=== PATIENT | female | born 1985 | race Caucasian/White ===

== ENCOUNTER → 2024-03-19 | Outpatient (CLI) | payer MEDICAID, SELFPAY ==
[2024-03-19 17:09] LABS: Absolute Lymphocyte Count 2.58 X10^3/uL (0.83-4.51); Absolute Neutrophil Count 7.1 X10^3/uL (2.0-7.7); Basophil# 0.07 X10^3/uL; Basophil% 0.7 % (0-1); Eosinophil# 0.06 X10^3/uL; Eosinophils% 0.6 % (0-5); Hematocrit 42.4 % (37-47); Hemoglobin 13.8 g/dL (12.0-15.0); Lymphocyte # 2.58 X10^3/ul (0.83-4.51); Lymphocyte % 24.5 % (19-41); Mean Corp Hgb Conc 32.5 g/dL (32-36); Mean Corpuscular Hgb 31.2 pg (27.0-32.0); Mean Corpuscular Volume 95.9 fL (81-99); Mean Platelet Vol. 9.3 fl (6.2-12.0); Monocyte# 0.57 X10^3/uL; Monocyte% 5.4 % (0-10); NRBC Flagged by Analyzer 0 % (0-5); Neutrophil # 7.14 X10^3/uL (2.7-7.7); Neutrophil % 67.8 % (47-70); Platelet Count 303 K/mm3 (150-450); RBC Distribution Width CV 13.5 % (11.6-14.6); RBC Distribution Width SD 48.6 fl (35.1-43.9); Red Blood Count 4.42 M/mm3 (4.2-5.4); White Blood Count 10.5 K/mm3 (4.4-11.0)
[2024-03-19 17:48] LABS: AST(SGOT) 23 U/L (15-37); Alanine Aminotransfer ALT/SGPT 41 U/L (13-56); Albumin, Serum 4.2 g/dL (3.2-5.0); Alkaline Phosphatase 69 U/L (45-117); Anion Gap 10 (5-15); BUN 14 mg/dL (7-18); BUN/Creat Ratio 18.2 RATIO (10-20); Calcium,Total 9.7 mg/dL (8.5-10.1); Chloride 102 mmol/L (98-107); Cholesterol 272 mg/dL (200); Creatinine, Serum 0.77 mg/dL (0.55-1.02); EST Glomerular Filtration Rate 88 mL/min (>60); Est Glom Filt Rate - Afr Amer 107 mL/min (>60); Globulin 4.1 g/dL (2.2-4.2); Glucose 100 mg/dL (74-106); High Density Lipoprotein 58 mg/dL; Potassium 3.7 mmol/L (3.5-5.1); Protein, Total 8.3 g/dL (6.4-8.2); Sodium Level 137 mmol/L (136-145); Triglycerides 225 mg/dL; Very Low Density Lipoprotein 45 mg/dL (5-40)
== END | disposition home or self-care (01) ==
LOC: BIMLAB 16:03
PROVIDERS: PCP Internal Medicine; Referring Provider Internal Medicine; Visit Provider Internal Medicine
DX: Z00.00 Encounter for general adult medical examination without abnormal findings (principal); Z13.29 Encounter for screening for other suspected endocrine disorder
CPT/HCPCS: 36415; 80053; 80061; 84439; 84443; 85025

== ENCOUNTER 2024-06-26 13:56 | Observation (INO) | payer MEDICAID, SELFPAY ==
[2024-06-26] VITALS (15 sets, daily range): BP systolic 116–172; BP diastolic 68–115; PULSE 77–116; RESP 16–20; TEMP 36.5–37.3; O2SAT 94–100; BMI 34.2; BMI 34.5
--- NOTE | 2024-06-26 14:11 | CT_ITS ---
PROCEDURE: ABDOMEN/PELVIS W IV CONT ONLY 06/26/2024 REASON FOR EXAM: RIGHT SIDED PAIN TECHNIQUE: Abdomen and pelvis CT with intravenous contrast. Coronal and Sagittal reconstruction series were provided. PATIENT PREPARATION: Per protocol ORAL CONTRAST TYPE: None. AMOUNT: mL CONTRAST: Omnipaque 350 VOLUME: 100 mL Not Provided Gauge IV One or more dose reduction techniques were used (e.g., Automated exposure control, adjustment of the mA and/or kV according to patient size, use of iterative reconstruction technique. COMPARISON: None FINDINGS: Lung bases: Mild dependent atelectasis Liver: Hepatomegaly, craniocaudal length 19.5 cm. Mild diffuse steatosis. No focal lesion. Gallbladder: No ductal dilation. Gallbladder is unremarkable. Spleen: Normal size. Pancreas: Normal size without evidence of mass surrounding inflammation or ductal dilation. Adrenals: 8 mm left adrenal low-attenuation nodule, likely an adenoma. Right adrenal gland is unremarkable. Kidneys: No suspicious mass or abnormal enhancement. Left interpolar region subcentimeter low-attenuation lesion, too small to characterize likely benign. Nonobstructing left renal punctate calculi, without hydronephrosis. Bladder: Unremarkable. Reproductive Organs: Bilateral adnexal cysts, the larger on the left measures 3.1 x 2.9 cm. Bowel: Stomach is unremarkable. Small hiatal hernia. No bowel dilation or significant wall thickening. Appendix: Appendiceal dilation measuring up to 11 mm (series 601, image 50), with wall thickening, submucosal hyperemia and surrounding soft tissue stranding compatible with acute appendicitis. No evidence of rupture. Lymph nodes: A few prominent but nonenlarged by size criteria mesenteric periappendiceal lymph nodes are likely reactive. Vasculature: The abdominal aorta and IVC are normal. Peritoneum / Retroperitoneum: No ascites. No pneumoperitoneum. Bones: Unremarkable. Soft tissues: Small fat containing umbilical hernia. CT/Abdomen/Pelvis W IV Cont ONLY IMPRESSION: 1. Appendiceal dilation with wall thickening, hyperemia and surrounding soft ti ssue stranding compatible with acute appendicitis. 2. Hepatic steatosis without focal lesion. 3. 8 mm left adrenal low-attenuation lesion, likely an adenoma. 4. 3.1 x 2.9 cm benign left adnexal cyst. Reading [facility]
--- NOTE | 2024-06-26 14:12 | EX.ED.DYSGE1 ---
HPI History of Present Illness Chief Complaint: Abd Pain Informant: patient and parent Narrative Narrative: 39-year-old female presenting to the emergency room with abdominal pain. Patient states that she has had a sebaceous cyst on the right lower quadrant of her abdomen for a long time. She states that it has at times swollen and come to the surface and drained. She states that when it swells she gets a burning sensation. Last night around 2200 hrs. her dog jumped on her abdomen and since that time she has had a constant burning pain on the right side of her abdomen as well as discomfort in her epigastrium. She notes nausea and waves of hot and cold flashes. No fevers. No change in bowel or urinary symptoms. Mother states that she can tolerate a lot of pain but not this and she has had [address] [facility] Medical History Encounter to establish care Elevated blood pressure reading without diagnosis of hypertension Localized swelling of abdominal wall Screening for thyroid disorder Preventative health skilled nursing Medications ?Medication ?Instructions ?Recorded ?Last Taken ?Type ondansetron 4 mg disintegrating 4 mg PO Q6H PRN PRN Nausea #15 tabs 06/26/24 Unknown Rx tablet Allergy/AdvReac Type Severity Reaction Status Date / Time Penicillins Allergy Other Verified 06/26/24 13:58 Family History Sister Thyroid disorder Mother Thyroid disorder Anxiety Hypertension Heart disease Father Diabetes Arthritis Other CVA (cerebral vascular accident) Surgical History Previous section (09/08/13) History of tonsillectomy Social History adopted: No household members: family number of children: 2 current occupational status: unemployed current occupational exposures/hazards: No pets and animals: Yes history of recent travel: No Smoking Status: Former smoker second hand exposure: No alcohol intake: current details: maybe twice a month substance use type: does not use ROS ROS ED Constitutional Constitutional ED: Denies chills, fever(s) or weight loss Eyes Eyes: Denies change in vision or diplopia ENT ENT ED: Denies ear pain, rhinorrhea or sore throat Cardiovascular Cardiovascular: Denies chest pain, orthopnea, palpitations or racing heartbeat Respiratory/Chest Respiratory/Chest: Denies cough, dyspnea or orthopnea Gastrointestinal Gastrointestinal: Reports abdominal pain and nausea; Denies diarrhea or vomiting Genitourinary Genitourinary ED: Denies dysuria, hematuria or urinary frequency Musculoskeletal Musculoskeletal: Denies arthralgias or myalgias Integumentary Denies abscess or rash Neurologic Neurologic: Denies headache(s) or weakness Psychiatric Psychiatric: Denies anxiety, depression, suicidal ideation or suicidal thoughts Endocrine Endocrinology: Denies polydipsia, polyphagia or polyuria Allergic/Immunologic Allergic/Immunologic ED: Denies mouth swelling, tongue swelling or urticaria EXAM Physical Exam Const Vital Signs: 06/26/24 13:58 06/26/24 15:57 06/26/24 17:00 Temperature 97.7 F L Temperature Source Temporal Pulse Rate 115 H 77 94 Respiratory Rate 20 H 18 19 H Blood Pressure 172/115 H 158/101 H Blood Pressure Mean 134 120 Blood Pressure Source Blood Pressure Position Blood Pressure Location Pulse Ox 100 98 98 Oxygen Delivery Method Room Air Room Air Room Air 06/26/24 17:19 06/26/24 17:21 Temperature 98.2 F 98.1 F Temperature Source Oral Pulse Rate 116 H 108 H Respiratory Rate 19 H 19 H Blood Pressure 158/98 H 158/98 H Blood Pressure Mean 118 118 Blood Pressure Source Monitor Blood Pressure Position Supine Blood Pressure Location Right Arm Pulse Ox 96 97 Oxygen Delivery Method Room Air Positive well nourished and well developed General Appearance ED: well developed and NAD HEENT Reports normocephalic, head/scalp atraumatic and moist mucous membranes Eyes PERRL and EOMs intact bilaterally Neck no lymphadenopathy, supple and no JVD Resp normal respiratory effort and clear to auscultation bilaterally Cardio regular rate, regular rhythm and no murmurs GI GI Narrative: There is a cutaneous scar in the right middle quadrant where the patient states she has had a cyst drained. I do not appreciate any skin erythema. There is no involuntary guarding. The abdomen is soft. I do not appreciate a palpable mass in the soft tissue. There is normal active bowel sounds. Palpation: soft Back/Spine no CVA tenderness and normal ROM Extremity normal to inspection General Extremety ED: Negative for edema General Extremity: Negative for edema Neuro oriented x3 and CN's II-XII intact bilaterally Sensorium / Orientation: alert Motor Exam: strength 5/5 throughout Psych mental status grossly normal Mood & Affect: Negative for depressed or tearful Skin no rashes or lesions noted and no wounds MDM MDM MDM Narrative Medical decision making narrative: Differential diagnosis includes but not limited to ruptured sebaceous cyst abdominal wall contusion colitis biliary colic appendicitis UTI Patient's white count is elevated 12.8 normal BMP except for glucose of 124. test is negative LFTs within normal limits. CT of the abdomen pelvis was obtained which is concerning for acute appendicitis. I spoke with on-call surgery Dr. Hubbard who is come down to evaluate the patient. Plan of care is admission and plan for the OR. Patient will receive a dose of Cipro and Flagyl due to penicillin allergy. History & Record Review Discussion w/independent historian: Patient and Family Additional record(s) reviewed:: Prior outpatient record, Prior ED visit and Prior labs Lab Data Attestation: I reviewed the patient's lab results. Labs: Laboratory Results - last 24 hr 06/26/24 14:20 WBC 12.8 H RBC 4.39 Hgb 13.9 Hct 41.5 MCV 94.5 MCH 31.7 MCHC 33.5 RDW Std Deviation 45.3 H RDW Coeff of Hugo 13.1 Plt Count 268 MPV 9.2 Immature Gran % (Auto) 0.500 Neut % (Auto) 83.8 H Lymph % (Auto) 8.3 L [place] % (Auto) 4.8 Eos % (Auto) 2.2 Baso % (Auto) 0.4 Absolute Neuts (auto) 10.7 H Absolute Lymphs (auto) 1.06 Nucleated RBC % 0 Sodium 134 Potassium 3.7 Chloride 98 Carbon Dioxide 21.3 Anion Gap 15 BUN 12 Creatinine 0.59 L Estim Creat Clear Calc 133.09 Est GFR (MDRD) Non-Af 117 BUN/Creatinine Ratio 19.8 Glucose 124 H Calcium 9.7 Total Bilirubin 0.53 AST 25 ALT 28 Alkaline Phosphatase 69 Total Protein 7.6 Albumin 4.5 Globulin 3.1 Albumin/Globulin Ratio 1.4 Serum , Qual NEGATIVE Radiography Diagnostic Testing: Clinical Impression(s) from Imaging Studies Abdomen/Pelvis CT 06/26/24 14:11 IMPRESSION: 1. Appendiceal dilation with wall thickening, hyperemia and surrounding soft tissue stranding compatible with acute appendicitis. 2. Hepatic steatosis without focal lesion. 3. 8 mm left adrenal low-attenuation lesion, likely an adenoma. 4. 3.1 x 2.9 cm benign left adnexal cyst. Reading Location: [facility] Management Discussion w/another healthcare provider: Weaving Professor (Dr Hubbard) Discharge Plan Dx/Rx/DC Orders Clinical Impression: Abdominal pain, Nausea, Acute appendicitis Disposition Disposition: Acute Care Hospital [facility]
[2024-06-26] MEDS: Ketorolac 30 MG/ML Syringe IV (14:24)
[2024-06-26 14:31] LABS: Absolute Lymphocyte Count 1.06 X10^3/uL (0.83-4.51); Absolute Neutrophil Count 10.7 X10^3/uL (2.0-7.7); Basophil# 0.05 X10^3/uL; Basophil% 0.4 % (0-1); Eosinophil# 0.28 X10^3/uL; Eosinophils% 2.2 % (0-5); Hematocrit 41.5 % (37-47); Hemoglobin 13.9 g/dL (12.0-15.0); Lymphocyte # 1.06 X10^3/ul (0.83-4.51); Lymphocyte % 8.3 % (19-41); Mean Corp Hgb Conc 33.5 g/dL (32-36); Mean Corpuscular Hgb 31.7 pg (27.0-32.0); Mean Corpuscular Volume 94.5 fL (81-99); Mean Platelet Vol. 9.2 fl (6.2-12.0); Monocyte# 0.61 X10^3/uL; Monocyte% 4.8 % (0-10); NRBC Flagged by Analyzer 0 % (0-5); Neutrophil # 10.73 X10^3/uL (2.7-7.7); Neutrophil % 83.8 % (47-70); Platelet Count 268 K/mm3 (150-450); RBC Distribution Width CV 13.1 % (11.6-14.6); RBC Distribution Width SD 45.3 fl (35.1-43.9); Red Blood Count 4.39 M/mm3 (4.2-5.4); White Blood Count 12.8 K/mm3 (4.4-11.0)
[2024-06-26] MEDS: Ondansetron ODT 4 MG Tablet PO (14:33)
[2024-06-26 14:55] LABS: Internal QC Validated? YES +Cl - CLEAR BKGD; Pregnancy, Serum, hCG Quali. NEGATIVE Negative; Record Kit Lot#, Serum Preg. 929381
[2024-06-26 14:59] LABS: ALB/GLOB Ratio 1.4 RATIO (0.9-2.4); AST(SGOT) 25 U/L (<=31); Alanine Aminotransfer ALT/SGPT 28 U/L (<=34); Albumin, Serum 4.5 g/dL (3.5-5.0); Alkaline Phosphatase 69 U/L (35-104); Anion Gap 15 (5-15); BUN 12 mg/dL (4-19); BUN/Creat Ratio 19.8 RATIO (10-20); Calcium,Total 9.7 mg/dL (7.6-11.0); Carbon Dioxide 21.3 mmol/L (21.0-32.0); Chloride 98 mmol/L (98-108); Creatinine, Serum 0.59 mg/dL (0.70-1.20); EST Glomerular Filtration Rate 117 (>60); Estimated Creatinine Clearance 133.09 ml/min (50-250); Globulin 3.1 g/dL (2.2-4.2); Glucose 124 mg/dL (70-99); Potassium 3.7 mmol/L (3.3-5.1); Protein, Total 7.6 g/dL (5.9-8.4); Sodium Level 134 mmol/L (133-145); Total Bilirubin 0.53 mg/dL (0.00-1.30)
[2024-06-26] MEDS: 0.9% Normal Saline (1000mL) 1,000 ML 999 ML IV (17:24)
[2024-06-26] MEDS: metroNIDAZOLE 500 MG/100 ML BAG 100 MG IV (17:35)
--- NOTE | 2024-06-26 17:54 | HP.PCM_ITS ---
HPI - General General Date of Service: 06/26/24 HPI Narrative IRMA BACK, is a 39 F who presents to [facility] with complaints of acute onset abdominal pain. She states that she was at home last evening when her palpate lab jumped onto her abdomen and immediately thereafter she experienced a hot sensation over the area that had been impacted. She states that this was then accompanied by progressive upper abdominal pain and nausea. She did not document any objective fevers but does report some chills. She states she has a sebaceous cyst of the right abdominal wall that is occasionally flared and even ruptured (requiring incision and drainage on 1 prior occasion) that initially felt similarly but describes the present abdominal discomfort as more intense. Concerning her bowel habits, Mrs. Alvarado reports these to be somewhat erratic and describes constipation and diarrhea. She also shares that she has had some yellow seedy stools. Patient's ER workup notable for leukocytosis of 12.8. CT imaging of the abdomen pelvis was performed and read by radiology as consistent with acute appendicitis given the finding of an 11 mm dilated appendix. Patient has no significant past medical history. Past surgical history includes the above section x 3. PFSH Medical History Encounter to establish care Elevated blood pressure reading without diagnosis of hypertension Localized swelling of abdominal wall Screening for thyroid disorder Preventative health residential Medications ?Medication ?Instructions ?Recorded ?Last Taken ?Type ondansetron 4 mg disintegrating 4 mg PO Q6H PRN PRN Na usea #15 tabs 06/26/24 Unknown Rx tablet Allergy/AdvReac Type Severity Reaction Status Date / Time Penicillins Allergy Other Verified 06/26/24 13:58 Family History Sister Thyroid disorder Mother Thyroid disorder Anxiety Hypertension Heart disease Father Diabetes Arthritis Other CVA (cerebral vascular accident) Surgical History Previous section (09/08/13) History of tonsillectomy Social History adopted: No household members: family number of children: 2 current occupational status: unemployed current occupational exposures/hazards: No pets and animals: Yes history of recent travel: No Smoking Status: Former smoker second hand exposure: No alcohol intake: current details: maybe twice a month substance use type: does not use Vital Signs Vital Signs Vital Signs: 06/26/24 13:58 06/26/24 15:57 06/26/24 17:00 Temperature 97.7 F L Temperature Source Temporal Pulse Rate 115 H 77 94 Respiratory Rate 20 H 18 19 H Blood Pressure 172/115 H 158/101 H Blood Pressure Mean 134 120 Blood Pressure Source Blood Pressure Position Blood Pressure Location Pulse Ox 100 98 98 Oxygen Delivery Method Room Air Room Air Room Air 06/26/24 17:19 06/26/24 17:21 Temperature 98.2 F 98.1 F Temperature Source Oral Pulse Rate 116 H 108 H Respiratory Rate 19 H 19 H Blood Pressure 158/98 H 158/98 H Blood Pressure Mean 118 118 Blood Pressure Source Monitor Blood Pressure Position Supine Blood Pressure Location Right Arm Pulse Ox 96 97 Oxygen Delivery Method Room Air Weight Weight: 193 lb 4.8 oz Body Mass Index (BMI) 34.2 Physical Exam Const alert Constitutional Narrative: Mild distress from abdominal discomfort General Appearance: cooperative Resp normal respiratory effort GI GI Narrative: Obese, scar over right abdomen consistent with prior I&D site as well as in the supraumbilical position consistent with prior piercing site, no obvious hernias, no present erythema in this location, nondistended, tender to palpation over McBurney's point. Results Lab / Micro Data 06/26/24 14:20 06/26/24 14:20 Labs: Laboratory Results - last 24 hr 06/26/24 14:20: WBC 12.8 H, RBC 4.39, Hgb 13.9, Hct 41.5, MCV 94.5, MCH 31.7, MCHC 33.5, RDW Std Deviation 45.3 H, RDW Coeff of Hugo 13.1, Plt Count 268, MPV 9.2, Immature Gran % (Auto) 0.500, Neut % (Auto) 83.8 H, Lymph % (Auto) 8.3 L, [place] % (Auto) 4.8, Eos % (Auto) 2.2, Baso % (Auto) 0.4, Absolute Neuts (auto) 10.7 H, Absolute Lymphs (auto) 1.06, Nucleated RBC % 0, Sodium 134, Potassium 3.7, Chloride 98, Carbon Dioxide 21.3, Anion Gap 15, BUN 12, Creatinine 0.59 L, Estim Creat Clear Calc 133.09, Est GFR (MDRD) Non-Af 117, BUN/Creatinine Ratio 19.8, Glucose 124 H, Calcium 9.7, Total Bilirubin 0.53, AST 25, ALT 28, Alkaline Phosphatase 69, Total Protein 7.6, Albumin 4.5, Globulin 3.1, Albumin/Globulin Ratio 1.4, Serum , Qual NEGATIVE Imaging Radiology Impression Abdomen/Pelvis CT 06/26/24 14:11 IMPRESSION: 1. Appendiceal dilation with wall thickening, hyperemia and surrounding soft tissue stranding compatible with acute appendicitis. 2. Hepatic steatosis without focal lesion. 3. 8 mm left adrenal low-attenuation lesion, likely an adenoma. 4. 3.1 x 2.9 cm benign left adnexal cyst. Reading Location: [facility] Assessment & Plan Assessment/Plan (1) Acute appendicitis: PLAN: Patient 39-year-old female with unusual presentation for acute appendicitis given her history, however, her workup is consistent with this diagnosis including leukocytosis and CT imaging showing dilated appendix. I do not see clear evidence of an appendicolith. I find it mildly intriguing that patient does appear to have air within the lumen of part of her appendix which is atypical of acute appendicitis. Still, given the stranding and its dilation I find it to be acutely inflamed and have recommended surgical appendectomy. Procedure was described in detail. Will determine postoperative disposition depending on patient's intraoperative findings and postoperative status. She is describing significant nausea at this point so she may require overnight observation as we reacclimate her to a diet. She is to receive empiric Zosyn for emergency medicine. She has been consented for laparoscopic appendectomy. The OR has been put on notice for the procedure and patient is due to proceed at next availability. Diaz Hubbard MD General Surgery Endocrine Surgery Pager: [facility] [address] [place] [address], [facility], [address] [place] [address] Office: [phone] Charges/Coding Visit Charges Inpatient E&M: 19448 Init Hosp L2
[2024-06-26] MEDS: Bupiv/Epi 0.25% 30 ML Vial (17:59)
--- NOTE | 2024-06-26 18:00 | ED.RN ---
report given to OR nurse
--- NOTE | 2024-06-26 18:06 | PCM.PRE.AN2 ---
ASA Classification* ASA Classification ASA Classification: 2 and E Assessment & Plan Anesthesia* Anesthesia Assessment Anesthesia Assessment: Discussed sedation and/or anesthesia options, risks, benefits, and alternatives with patient/parents/legal guardian/POA. Questions invited. The patient/parents/legal guardian/POA seems to understand and agrees to proceed with anesthesia plan. Reviewed the physical assessment, medical history, allergy history and patient home medications list prior to surgery/procedure/anesthetic and documented any changes. Performed airway and anesthesia risk assessments. Anesthesia Type Anesthesia Type: General History Source History Obtained from:: Patient and Chart Anesthesia Focused Assessment* Temperature: 98.1 F Pulse Rate: 108 Blood Pressure: 158/98 Respiratory Rate: 19 Pulse Ox: 97 Airway Assessment Mouth opens: >3 cm Mallampati Score: II Teeth Condition: Intact Neck Range of motion (ROM): Full ROM Focused Labs Anesthesia Preop lab: CBC WBC 12.8 K/mm3 (4.4-11.0) H 06/26/24 14:20 06/26/24 RBC 4.39 M/mm3 (4.2-5.4) 06/26/24 14:20 06/26/24 Hgb 13.9 g/dL (12.0-15.0) 06/26/24 14:20 06/26/24 Hct 41.5 % (37-47) 06/26/24 14:20 06/26/24 Plt Count 268 K/mm3 (150-450) 06/26/24 14:20 06/26/24 CHEMISTRY Potassium 3.7 mmol/L (3.3-5.1) 06/26/24 14:20 06/26/24 Sodium 134 mmol/L (133-145) 06/26/24 14:20 06/26/24 BUN 12 mg/dL (4-19) 06/26/24 14:20 06/26/24 Creatinine 0.59 mg/dL (0.70-1.20) L 06/26/24 14:20 06/26/24 Glucose 124 mg/dL (70-99) H 06/26/24 14:20 06/26/24 POC Glucose 86 mg/dL (70-110) 12/08/15 07:48 12/08/15 TSH 1.820 uIU/mL (0.358-3.740) 03/19/24 16:03 03/19/24 COAG Pre-Assessment Diagnosis/Proposed Procedure Planned Operative Procedure(s): Lap appendectomy Anesthesia History Anesthesia History - recruitment internship: Anesthesia History - recruitment internship Hx Hospitalization Any Problems With Anesthesia No 06/26/24 17:21 Cholinesterase deficiency You/Your Family Experience fever (hyperthermia) with Relationship Recent Exposure to Contagious Disease Does patient have nerve No 06/26/24 17:21 stimulator Patient instructed to have device shut off --Does patient have Pacemaker or ICD? When Was Last Pacemaker Check QUESTION #4 FULL TEXT: You/Your Family Experience fever (hyperthermia) with Anesthesia Last Oral Intake Last Oral intake: Last Oral Intake NPO since 12:00 06/26/24 17:21 Meds taken in AM with sips of water? Meds patient instructed to take am of surgery PONV PONV - recruitment internship: PONV - recruitment internship Female HX of Motion Sickness HX of N/V After Surgery Non-Smoker Duration of Surgery greater than 60 minutes Number of Risk Factors PONV Score Height & Weight Height & Weight: Anesthesia: Height & Weight Height 5 ft 3 in 06/26/24 17:21 Weight: 87.679 kg 06/26/24 17:21 Body Mass Index (BMI) 34.2 06/26/24 17:21 Respiratory Assessment Respiratory Assessment - recruitment internship: Respiratory Tract Infection Hx - recruitment internship Hx Respiratory Tract Infection STOP Sleep Apnea STOP Sleep Apnea - recruitment internship: STOP Sleep Apnea - recruitment internship Hx Hypertension No 06/26/24 17:21 Hx Sleep Apnea No 06/26/24 17:21 CPAP BIPAP Do you snore loudly (louder Yes 06/26/24 17:21 than talking or can be heard Do you often feel tired/ No 06/26/24 17:21 fatigued/ sleepy during daytime? Has anyone observed you stop No 06/26/24 17:21 breathing during sleep? STOP Results Negative 06/26/24 17:21 QUESTION #5 FULL TEXT : Do you snore loudly (louder than talking or can be heard through closed doors)? 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 Specify any problems Hx of Preganancy in last 3 Months Nurse Filling Out Transfusion & Questions: Date: Time: Patient unable to answer at this time (ie. confused, unrespo /Reproduction History /Reproductive History - recruitment internship: /Reproductive Hx- recruitment internship Hx Now No 06/26/24 17:21 Gestational Age (in weeks): EDC: Hx Hx Para Hx Section SAB No 06/26/24 13:58 Active Medications Active Medications: Current Medications Generic Name Dose Route Start Last Admin Trade Name Freq PRN Reason Stop Dose Admin Sodium Chloride 1,000 mls @ 999 mls/hr 06/26/24 17:22 06/26/24 17:24 IV 06/26/24 18:22 999 mls/hr .Q1H1M ONE Administration Ciprofloxacin 400 mg in 200 mls @ 200 mls/hr 06/26/24 17:22 Cipro IV 06/26/24 18:21 X1 ONE Metronidazole 500 mg in 100 mls @ 100 mls/hr 06/26/24 17:22 06/26/24 17:35 Flagyl IV 06/26/24 18:21 100 mls/hr X1 ONE Administration PFSH Medical History Encounter to establish care Elevated blood pressure reading without diagnosis of hypertension Localized swelling of abdominal wall Screening for thyroid disorder Preventative health [facility] Medications ?Medication ?Instructions ?Recorded ?Last Taken ?Type ondansetron 4 mg disintegrating 4 mg PO Q6H PRN PRN Nausea #15 tabs 06/26/24 Unknown Rx tablet Allergy/AdvReac Type Severity Reaction Status Date / Time Penicillins Allergy Other Verified 06/26/24 13:58 Family History Sister Thyroid disorder Mother Thyroid disorder Anxiety Hypertension Heart disease Father Diabetes Arthritis Other CVA (cerebral vascular accident) Surgical History Previous section (09/08/13) History of tonsillectomy Social History adopted: No household members: family number of children: 2 current occupational status: unemployed current occupational exposures/hazards: No pets and animals: Yes history of recent travel: No Smoking Status: Former smoker second hand exposure: No alcohol intake: current details: maybe twice a month substance use type: does not use Review of Systems (Anesthesia) ROS Narrative System reviewed and no additional complaints, except as documented. Physical Exam Const alert and oriented x3 Resp normal respiratory effort Cardio regular rate Neuro oriented x3 and moves all extremities
[2024-06-26] MEDS: Ciprofloxacin 400 MG/200 ML BAG 200 MG IV (18:37)
--- NOTE | 2024-06-26 18:50 | APP_PTH ---
PATIENT: IRMA BACK LOC: MS3 U#:[id number] AGE/SX: 39/F ROOM: [facility] [place] RE06/26/[address]: Dr. Diaz Hubbard MD : 1985 BED: 1 DIS: 06/27/2024 SPEC #: [id number] RECD: 06/29/24 09:22 STATUS: FITO REHilda #: [id number] YORDAN: 06/26/24 18:[address]: Diaz Hubbard DEPT: SURGICAL PATHOLOGY RECD BY: Neto Anglin ENTERED: 06/29/24 09:48 SP TYPE: APPENDIX OTHR DR: DO Dr. Maxi Lorenz DO Dr. Efewongbe Oleghe, MD Tissues: A - Appendix, NOS Procedures: Surgery Specimen Level III HEADER OPERATION: Laparoscopic appendectomy PRE-OP DIAGNOSIS: Appendicitis TISSUE SUBMITTED: A- Appendix MICROSCOPIC DIAGNOSIS A. Appendix, appendectomy: * Acute suppurative appendicitis with transmural inflammation and periappendicitis MICROSCOPIC DESCRIPTION Slides are reviewed. GROSS DESCRIPTION A. Received in formalin in a container labeled with the patient's name, date of , and appendix is a 15.2 cm in length appendectomy specimen with an average diameter of 0.9 cm. There is attached salazar-yellow and shaggy mesoappendix measuring up to 2.5 cm in thickness. The serosa is ford-brown and mottled. The stapled resection margin is inked black, and sectioning reveals a 1.2 x 0.5 x 0.5 cm indurated possible fecalith situated 0.1 cm from the stapled resection margin. The lumen ranges from 0.5 to 1.2 cm with brown, thick fluid. The wall thickness averages 0.1 cm. No distinct perforation or exudate is identified. Lemon Grower sections are submitted in A1 (including resection margin en face, tip bisected, and cross-section). [facility] 06-29-2024 CPT:88929
--- NOTE | 2024-06-26 19:39 | OP.PCM_ITS ---
Procedures Digestive 40xxx-49xxx: 50840 Laparoscopy appendectomy Operative Report (Standard) Operative Information Date of Procedure: 06/26/24 Pre-Operative Diagnosis: Acute appendicitis Post-Operative Diagnosis: Acute uncomplicated appendicitis Surgery/Procedure Performed: Laparoscopic appendectomy media production operator: No Type of Anesthesia: General/Supplemental RN Documented Start/Stop Times: Operation Date: 06/26/24 18:50 Case Time Anesthesia Start 06/26/24 18:23 Into Room 06/26/24 18:23 Procedure Start 06/26/24 18:46 Procedure End 06/26/24 19:33 Anesthesia End 06/26/24 19:42 Out of Room 06/26/24 19:42 Into Recovery 06/26/24 19:45 Procedure Start Time: 18:46 Procedure Stop Time: 19:33 Select all DRAINS/GRAFTS/IMPLANTS that apply: None Estimated Blood Loss: 10 Specimen collected: Yes Description of specimen(s) removed: appendix Description of surgery: After appropriate identification in the preoperative holding area, the patient was brought to the operating room and placed supine on the operating room table. Antibiotics had been preoperatively administered with ciprofloxacin and Flagyl given an allergy to penicillin. Patient was then induced with general endotracheal anesthetic. The abdomen was prepped and draped in usual sterile fashion. Formal timeout was conducted to confirm both the patient and the procedure. A supraumbilical incision was made and carried down to the level of the fascia which was sharply opened. After opening the peritoneum in like fashion a finger sweep was made to confirm position, and a balloon trocar was placed and pneumoperitoneum was established to 15 mmHg. Patient was positioned in Trendelenburg with the left side down. Two additional 5 mm trocars were placed in the left lower quadrant and suprapubic positions. The peritoneum was inspected and there were no signs of inadvertent injury from this Moran entry. The appendix was visualized with evidence of acute inflammation but no evidence of perforation. It was both markedly dilated and long. Several adhesions to the retroperitoneum were taken down adjacent to the body of the appendix using the harmonic scalpel. Then extending the appendix blunt laparoscopic dissection was employed to create a window in the mesoappendix adjacent to the appendiceal base. Then the base of the appendix was sealed and amputated with the use of an Endo JOSSY stapler. The mesoappendix was divided with application of a laparoscopic harmonic. The appendix was placed in an Endo Catch bag. The staple line was inspected for hemostasis but slightly oozing was encountered. A Ray- Aleena was introduced to the peritoneal cavity and I held pressure over the staple line through the Ray-Aleena with a laparoscopic grasper for a period of 2 minutes. On reinspection the bleeding rate had slowed significantly but there is still a slight ooze. Therefore elected to place some Surgicel snow over this area and after application it remained both white in color and there was no evidence of ongoing bleeding. After hemostasis was confirmed the appendix was removed from the umbilical port site. Pneumoperitoneum was then evacuated and the supraumbilical port site fascia was closed with #1 Vicryl in a [id number] fashion. The port sites were infiltrated with a total volume of 30 mL local anesthetic. The skin of each port site was closed with 4-0 Monocryl in a subcuticular fashion. Steri-Strips and OpSite dressings were applied. Patient tolerated procedure well without any apparent complications. They were awoken from general anesthetic without issue and transferred to post anesthesia care unit for ongoing recovery. Surgical Findings: ? Dilated, firm appendix without evidence of perforation Complications Complications: No Admit VTE Documentation VTE Mechan Device Prophylaxis: SCD's
--- NOTE | 2024-06-26 19:52 | PCM.POST.ANE ---
Anesthesia: Postop Eval I Current Vital Signs Temperature: 99.1 F Pulse Rate: 111 Blood Pressure: 153/71 Respiratory Rate: 16 Pulse Ox: 99 Oxygen Delivery Method: Room Air Assessment Airway patent: Yes Spontaneous unlabored respirations: Yes Mental status: Awake and Calm nausea: No Vomiting: No Anesthesia Complication: No Fluid Hydration Crystalloid volume administer (ml): 1,000 Total IV fluid infused: 1,000 Progress Note Anesthesia document: Postop Eval 1 completed: Yes
--- NOTE | 2024-06-26 20:10 | PCM.POSTANE2 ---
Anesthesia Postop Eval I Sum Postop Eval Completion status Anesthesia document: Postop Eval 1 completed: Yes Anesthesia Postop Eval I Summary Anesthesia Postop Eval I Summary: Anesthesia Postop Eval I: Assessment Summary Airway patent Yes 06/26/24 19:53 Spontaneous unlabored Yes 06/26/24 19:53 respirations Mental status Awake,Calm 06/26/24 19:53 nausea No 06/26/24 19:53 Vomiting No 06/26/24 19:53 Anesthesia Postop Eval I: Fluid Summary Crystalloid volume administer 1,000 06/26/24 19:53 (ml) Colloids volume administered ( ml) Blood Product volume administered (ml) Total IV fluid infused 1,000 06/26/24 19:53 Anesthesia Postop Eval I: Summary Notes Anesthesia Complication No 06/26/24 19:53 Anesthesia Complication Comment: Post-operative progress note Anesthesia: Postop Eval II Evaluation Mental status: Awake and Calm Pain Level: 4 nausea: No Vomiting: No
[2024-06-26] MEDS: Acetaminophen 500 MG Tablet PO (23:17)
[2024-06-26] MEDS: 0.9% Normal Saline (1000mL) 1,000 ML 75 ML IV (23:17)
[2024-06-26] MEDS: oxyCODONE 5 MG Tablet PO (23:21)
[2024-06-27 01:06] VITALS: BP 147/81; PULSE 92; RESP 16; TEMP 36.7; O2SAT 95
[2024-06-27 05:15] VITALS: BP 151/93; PULSE 82; RESP 16; TEMP 36.7; O2SAT 97
[2024-06-27] MEDS: Acetaminophen 500 MG Tablet PO (05:20)
[2024-06-27] MEDS: oxyCODONE 5 MG Tablet PO (05:21)
[2024-06-27 08:00] VITALS: BP 138/76; PULSE 82; RESP 16; TEMP 37.2; O2SAT 97
--- NOTE | 2024-06-27 10:05 | DCINST_ITS ---
Discharge Instructions Diet Discharge Diet: No restrictions DC O2, CPAP, BIPAP needs Home O2 Discharge instructions: No Dressing / Incision Discharge Activity: May Not Drive (No driving while using narcotic pain medication) and May Shower (Postoperative day 1) May shower in (days): 1 Ice area for (Minutes): 20 Lifting Restrictions: No lifting greater than 15 pounds for 2 weeks after surgery Dressing / Incision Call your doctor if your incision/area has: Continuous Slow Oozing, Increased Pain/ Swelling, Increased Redness, Foul Smelling Discharge and Swelling at the incision site Call your doctor if you observe: Fever of 101 or Higher Remove Dressing in: 1 day (Please leave Steri-Strips intact until they fall off spontaneously or are taken off at your follow-up visit) Cleanse incision/area with: Soap & Water Follow Up Care Please Follow Up With: Diaz Hubbard MD When: 10-14 days postop Test Results: Test results from this visit will be discussed in further detail at your follow- up appointment, if applicable. Discharge Plan Admission Admit Date/Time: 06/26/24 20:29 Primary Reason for Your Visit: Acute appendicitis Attending Provider: Diaz Hubbard Primary Care Provider: León Rascon Instructions Additional Instructions / Restrictions: Please begin taking MiraLAX if using oxycodone to minimize risk for medication associated constipation Discharge Orders/Prescriptions Prescriptions: New ondansetron 4 mg tablet,disintegrating 4 mg PO Q6H PRN PRN (Reason: Nausea) Qty: 15 0RF oxycodone 5 mg Tablet 5 mg PO Q6H PRN PRN (Reason: Pain Score 6-10) 3 Days Qty: 14 0RF Referrals / Follow Up: León Rascon MD [Primary Care Provider] - 1-2 Days if not improving Disposition Disposition (needs filled in before D/C Order can be placed): Home, Self Care
--- NOTE | 2024-06-27 10:09 | PCM.DC.SUM ---
Providers Date of Admission: 06/26/24 Primary Care Physician: Dr. León Rascon MD Reason For Visit: ABDOMINAL PAIN Diagnosis Discharge Diagnosis (1) Acute appendicitis: Status: Acute Code(s): K35.80 - Unspecified acute appendicitis Plan: Patient 39-year-old female with unusual presentation for acute appendicitis given her history, however, her workup is consistent with this diagnosis including leukocytosis and CT imaging showing dilated appendix. I do not see clear evidence of an appendicolith. I find it mildly intriguing that patient does appear to have air within the lumen of part of her appendix which is atypical of acute appendicitis. Still, given the stranding and its dilation I find it to be acutely inflamed and have recommended surgical appendectomy. Procedure was described in detail. Will determine postoperative disposition depending on patient's intraoperative findings and postoperative status. She is describing significant nausea at this point so she may require overnight observation as we reacclimate her to a diet. She is to receive empiric Zosyn for emergency medicine. She has been consented for laparoscopic appendectomy. The OR has been put on notice for the procedure and patient is due to proceed at next availability. Diaz Hubbard MD General Surgery Endocrine Surgery Pager: [facility] [address] [place] [address], [address] [place] [address] Office: [phone] Medications at Discharge Home Medications ondansetron 4 mg disintegrating tablet 4 mg PO Q6H PRN PRN Nausea #15 tabs 06/26/24 oxycodone 5 mg tablet 5 mg PO Q6H PRN PRN Pain Score 6-10 3 days #14 tabs 06/27/24 Hospital Course Operations appendectomy (Laparoscopic appendectomy 06/26/2024) Procedures None Summary of Care Provided Hospital Course: Patient is a 39-year-old female who presented to [facility] ER on 06/26/2024 with complaints of acute onset abdominal pain that was largely localized to the right lower quadrant. Ensuing workup demonstrated leukocytosis and CT imaging showed evidence of acute appendicitis with periappendiceal stranding and dilation of the appendix. Patient's exam was further consistent with this diagnosis and I recommended proceeding with emergent surgical appendectomy. Upon eliciting patient's consent patient was taken for this procedure on the evening of 06/26/2024. Procedure was completed uncomplicated fashion but patient was admitted postoperatively for overnight observation given some persistent postoperative pain, nausea, and the late hour. By the morning of postoperative day 1 she was significantly improved and tolerating a regular diet. Her pain was well-controlled with oral pain medications. Discharge home was discussed and postoperative activity restrictions were reviewed. Additionally, reviewed expectation for outpatient follow-up. All questions were answered and discharge was granted. Physical Exam Const alert, oriented x3 and no apparent distress Resp normal respiratory effort GI GI Narrative: Postoperative dressings intact with slight bloody strikethrough to supraumbilical port site. Patient's abdomen is otherwise nondistended, soft, appropriately tender to palpation about incisions. Weight / BMI Weight Weight: 195 lb Body Mass Index (BMI) 34.5 ABG / Lab / Microbiology Data 06/26/24 14:20 06/26/24 14:20 Laboratory: Laboratory Results - last 24 hr 06/26/24 14:20: WBC 12.8 H, RBC 4.39, Hgb 13.9, Hct 41.5, MCV 94.5, MCH 31.7, MCHC 33.5, RDW Std Deviation 45.3 H, RDW Coeff of Hugo 13.1, Plt Count 268, MPV 9.2, Immature Gran % (Auto) 0.500, Neut % (Auto) 83.8 H, Lymph % (Auto) 8.3 L, [place] % (Auto) 4.8, Eos % (Auto) 2.2, Baso % (Auto) 0.4, Absolute Neuts (auto) 10.7 H, Absolute Lymphs (auto) 1.06, Nucleated RBC % 0, Sodium 134, Potassium 3.7, Chloride 98, Carbon Dioxide 21.3, Anion Gap 15, BUN 12, Creatinine 0.59 L, Estim Creat Clear Calc 133.09, Est GFR (MDRD) Non-Af 117, BUN/Creatinine Ratio 19.8, Glucose 124 H, Calcium 9.7, Total Bilirubin 0.53, AST 25, ALT 28, Alkaline Phosphatase 69, Total Protein 7.6, Albumin 4.5, Globulin 3.1, Albumin/Globulin Ratio 1.4, Serum , Qual NEGATIVE Radiography Diagnostic Testing: Radiology Impression Abdomen/Pelvis CT 06/26/24 14:11 IMPRESSION: 1. Appendiceal dilation with wall thickening, hyperemia and surrounding soft tissue stranding compatible with acute appendicitis. 2. Hepatic steatosis without focal lesion. 3. 8 mm left adrenal low-attenuation lesion, likely an adenoma. 4. 3.1 x 2.9 cm benign left adnexal cyst. Reading Location: [facility] D/C Instructions Discharge Diet: No restrictions May shower in (days): 1 Ice area for (Minutes): 20 Call your doctor if your incision/area has: Continuous Slow Oozing, Increased Pain/ Swelling, Increased Redness, Foul Smelling Discharge and Swelling at the incision site Call your doctor if you observe: Fever of 101 or Higher Cleanse incision/area with: Soap & Water DC O2, CPAP, BIPAP Needs Home O2 Discharge instructions: No Please Follow Up With: Diaz Hubbard MD When: 10-14 days postop Meaningful Use Info Meaningful Use Meaningful Use Diagnoses (Choose all that apply): None applicable Ischemic Stroke Statin Dosing Therapy Reference: STATIN DOSE THERAPY REFERENCE: * Patients > 75 years receive moderate or high dose statin therapy. * Patients 75 years or YOUNGER should receive HIGH intensity statin dose unless contraindicated. You will be required to document reason for non-treatment if statin daily dose does not meet guidelines. HIGH DOSE STATIN THERAPY DAILY Atorvastatin > than or = to 40 mg Rosuvastatin > than or = to 20 mg Amlodipine + Atorvastatin > than or = to 2.5/40 mg Ezetimibe + Simvastatin 10/80 mg Simvastatin 80mg Discharge Plan Admission Admit Date/Time: 06/26/24 20:29 Primary Reason for Your Visit: Acute appendicitis Attending Provider: Diaz Hubbard Primary Care Provider: León Rascno Instructions Additional Instructions / Restrictions: Please begin taking MiraLAX if using oxycodone to minimize risk for medication associated constipation Discharge Orders/Prescriptions Prescriptions: New ondansetron 4 mg tablet,disintegrating 4 mg PO Q6H PRN PRN (Reason: Nausea) Qty: 15 0RF oxycodone 5 mg Tablet 5 mg PO Q6H PRN PRN (Reason: Pain Score 6-10) 3 Days Qty: 14 0RF Referrals / Follow Up: León Rascon MD [Primary Care Provider] - 1-2 Days if not improving Disposition Disposition (needs filled in before D/C Order can be placed): Home, Self Care Charges/Coding Visit Charges Inpatient E&M: 82732 Disch Hosp
== END 2024-06-27 10:58 | disposition home or self-care (01) ==
LOC: ED 17:21 → SDC 17:25 → MS3 20:37
PROVIDERS: Admitting Provider Internal Medicine; Emergency Provider Emergency Medicine; PCP Internal Medicine; Referring Provider Emergency Medicine; Visit Provider Surgery
PROC: 0DTJ4ZZ Resection of Appendix, Percutaneous Endoscopic Approach (ICD-10-PCS; CPT 44970; principal; 2024-06-26 18:30)
DX: K35.80 Unspecified acute appendicitis (principal); G89.18 Other acute postprocedural pain; Z87.891 Personal history of nicotine dependence; Z88.0 Allergy status to penicillin
CPT/HCPCS: 44970; 00840; J2405; 74177; 80053; 84703; 85025; 88304; 96361; 96374; 99221; 99283; Q9967; A4216; G0378; J0744